=== PATIENT | male | born 1990 ===

== ENCOUNTER 2023-05-23 06:59 | Outpatient (CLI) | payer OTHER ==
--- NOTE | 2023-05-23 16:31 | MRI Report ---
PROCEDURE: Shoulder RT WO INDICATIONS: SHOULDER PAIN TECHNIQUE: Noncontrast oblique coronal T2 fast spin echo with fat saturation, oblique sagittal T1 spin echo and T2 fast spin echo with fat saturation, axial T1 spin echo and T2 fast spin echo with fat saturation t hrough the shoulder. COMPARISON: None. FINDINGS: Image quality: Excellent. Rotator cuff: There is moderate supraspinatus, infraspinatus and subscapularis tendinosis. There is l ow-grade interstitial tear of the supraspinatus and infraspinatus tendons. No tendon rupture. No rot ator cuff muscle atrophy on sagittal images. Bones and bursae: No bone marrow contusions or fractures. Moderate acromioclavicular joint degenerat ion. Question old fracture of the distal clavicle. There is widening of AC joint (1.3 cm). The acrom ion demonstrates conventional anatomy, without an os acromiale. Small subacromial/subdeltoid bursal f luid is present. Capsule and soft tissues: There is a 5 mm paravertebral cyst adjacent to the superior labrum. Questi ons small superior labral tear. The glenohumeral ligaments appear intact. The long head of the bicep s tendon demonstrates normal location and morphology. The rotator interval appears normal, without f ibrosis. The coracohumeral ligament is normal in thickness. IMPRESSION: 1. Moderate supraspinous, infraspinatus and subscapularis tendinosis. No high-grade tendon tear. No r otator cuff muscle atrophy. 2. Suspect superior labral tear with a small paralabral cyst. 3. Moderate acromioclavicular joint degeneration. 4. Question old fracture of distal clavicle and widening of AC joint. Recommend clinical and radiogra phic correlation. 5. Small subacromial/subdeltoid bursal fluid suggesting mild bursitis. Reviewed by: Morgan Jones MD on 05/23/2023 4:30 PM PDT Approved by: Morgan Jones MD on 05/23/2023 4:30 PM PDT Station ID: [id number]
== END 2023-05-23 07:00 | disposition home or self-care (01) ==
LOC: DI 06:59
PROVIDERS: ATTEND Preventive Medicine Aerospace Medicine
DX: M19.011 Primary osteoarthritis, right shoulder (principal); M75.91 Shoulder lesion, unspecified, right shoulder